=== PATIENT | female | born 1940 | race Caucasian/White ===

== ENCOUNTER 2019-05-31 11:02 | Observation (INO) | payer MEDICARE, OTHER ==
--- NOTE | 2019-05-31 11:47 | RAD ---
FRONTAL RADIOGRAPH CHEST THREE VIEWS RIGHT RIBS: DATE: 05/31/2019. COMPARISON: None. HISTORY: Fall, lower right-sided rib pain. FINDINGS: There is a probable tiny apical pneumothorax on the right. There are right-sided posterior inferior rib fractures including the 9th, 10th, and 11th ribs. IMPRESSION: Multiple inferior right-sided rib fractures with a tiny associated apical pneumothorax on the right. Results called to Dr. Álvarez 11:38 a.m. 05/31/2019. CODE CR POS: OFF
[2019-05-31] MEDS ORDERED: Morphine 4 MG/ML VIAL ONE (11:57)
[2019-05-31] MEDS ORDERED: Ondansetron PF 4 MG/2 ML Vial ONE ×2 (11:58→12:38)
[2019-05-31 12:03] LABS: #Eosinphils 0.1 thou/uL (0.0-0.7); #Lymphocytes 1.1 thou/uL (1.20-3.40); #Monocytes 0.4 thou/uL (0.11-0.59); #Neutrophils 3.7 thou/uL (1.40-6.50); %Basophils 0.8 % (0.0-1.0); %Eosinophils 1.9 % (0.0-10.0); %Lymphocytes 20.2 % (21.0-51.0); %Monocytes 7.3 % (0.0-10.0); %Neutrophils 69.9 % (42.0-75.0); Mean Corpuscular HGB CONC 33.8 g/dL (32.0-36.0); Mean Corpuscular Hemoglobin 31.3 pg (27.0-31.0); Mean Corpuscular Volume 92.6 fL (78.0-98.0); Mean Platelet Volume 9.2 fL (7.4-10.4); Platelet Count 168 thou/uL (130-400); Red Blood Cell (RBC) Count 4.14 mill/uL (4.20-5.40); White Blood Cell (WBC) Count 5.3 thou/uL (4.8-10.8)
[2019-05-31 12:07] LABS: PTT 30.2 SEC (22.9-36.1); Prothrombin Time 13.2 SEC (12.0-14.7)
[2019-05-31 12:16] LABS: ALT (SGPT) 24 U/L (8-55); AST (SGOT) 24 U/L (5-34); Albumin 4.4 g/dL (3.4-4.8); Alkaline Phosphatase 36 U/L (40-150); Anion Gap 15 mmol/L (10-20); BUN (Urea Nitrogen) 11 mg/dL (9.8-20.1); Bilirubin, Total 0.8 mg/dL (0.2-1.2); Calc. Creatinine Clearance 0 mL/min (70-130); Calcium 9.2 mg/dL (7.8-10.44); Carbon Dioxide 24 mmol/L (23-31); Chloride 103 mmol/L (98-107); Estimated GFR-MDRD 67; Globulin 2.7 g/dL (2.4-3.5); Glucose 88 mg/dL (83-110); Potassium 4.1 mmol/L (3.5-5.1); Protein, Total 7.1 g/dL (6.0-8.3); Sodium 138 mmol/L (136-145)
--- NOTE | 2019-05-31 12:47 | CT ---
HEAD CT WITHOUT CONTRAST: DATE: 05/31/2019. COMPARISON: None. HISTORY: Fall, right-sided rib pain. TECHNIQUE: Axial CT imaging at 4.8 mm intervals from the vertex through the skull base without contrast. FINDINGS: The imaged paranasal sinuses and mastoid air cells are well aerated. There is no displaced calvarial fracture. There is no intracranial hemorrhage, midline shift, mass effect, or ventricular enlargement. IMPRESSION: No intracranial hemorrhage or displaced calvarial fracture. POS: OFF
--- NOTE | 2019-05-31 13:00 | CT ---
CERVICAL SPINE CT WITHOUT CONTRAST: DATE: 05/31/2019. COMPARISON: None. HISTORY: Fall, trauma, pain. TECHNIQUE: Axial CT imaging at 2 mm intervals through the cervical spine with coronal and sagittal reformatted i maging. FINDINGS: There is mild degenerative change at the atlantoaxial interspace. The craniocervical junction is int act. There is multilevel disk space narrowing and degenerative end plate change, most prominent at C3-4 an d C6-7 with mild associated posterior osteophyte formation at these levels. There is mild anterolist hesis at the C7-T1 level measuring approximately 4 mm. Multilevel bilateral cervical spine facet hypertrophy present. C1-2: The C1 ring appears intact. The occipital condyles, the dens, and the C1-2 articulation demonstrate no acute findings. There is a small pneumothorax in the right lung apex, as seen on recent chest radiograph. No displaced cervical spine fracture or evidence of cervical spine dislocation. IMPRESSION: Cervical spine degenerative change. No acute fracture of the cervical spine seen. There is an apica l pneumothorax on the right. POS: OFF
[2019-05-31] MEDS ORDERED: Iopamidol 370 76% 100 ML VIAL ONE (13:11)
--- NOTE | 2019-05-31 13:16 | CT ---
CT OF THE CHEST AND ABDOMEN AND PELVIS CT OF THE THORACIC SPINE CT OF THE LUMBAR SPINE: DATE: 05/31/2019. COMPARISON: None. HISTORY: Fall, trauma, pain. Right-sided rib fractures with associated small apical pneumothorax seen on rece nt radiographs. TECHNIQUE: Axial CT imaging at 5 mm intervals from the thoracic inlet through the pubic symphysis with IV contra st. Coronal and sagittal reformatted imaging of the chest, abdomen, pelvis, thoracic spine, and lumb ar spine obtained. FINDINGS: There is a breast implant on the left. No lymphadenopathy is noted within the axillary, hilar, or me diastinal regions. No significant pleural, pericardial, or mediastinal fluid is seen. The vascular structures of the chest appear unremarkable aside from atherosclerotic calcification in the region of the aortic arch and descending thoracic aorta. There is a small apical pneumothorax on the right. There is no pneumothorax on the left. No discrete endobronchial lesion is noted on either side. Review of the extraspinal osseous structures of the chest demonstrates multiple comminuted displaced rib fractures on the right involving the right 9th, 10th, and 11th ribs. There is no free intraperitoneal air or fluid seen. The liver, gallbladder, spleen, pancreas, and adrenal glands demonstrate no acute findings. There is a tiny hypodensity in the right lobe of the liver on image 61, too small to characterize. Tiny hypo densities are noted within the kidneys, too small to characterize, but likely representing cysts. Limited assessment of the bowel demonstrates no acute findings. Vascular structures of the abdomen/pelvis demonstrate scattered atherosclerotic calcification of the infrarenal abdominal aorta and its branches. No lymphadenopathy is evident within the abdomen or pel vis. The extraspinal osseous structures of the abdomen and pelvis demonstrate no acute findings. No displaced fracture or evidence of dislocation is seen involving the thoracic spine or the lumbar s pine. There is a mild degree of thoracic spine dextroscoliosis. There is multilevel lower lumbar sp ine facet hypertrophy and there is minimal anterolisthesis at the L4-5 level. There is subcutaneous gas within the right chest wall associated with the above-described rib fractur es. IMPRESSION: Comminuted and displaced 9th, 10th, and 11th rib fractures on the right with small volume associated subcutaneous emphysema and a small apical pneumothorax on the right. Additional incidental findings as above. POS: OFF
[2019-05-31] MEDS ORDERED: hydrALAZINE 20 MG/ML VIAL SLOW IVP PRN (13:47)
[2019-05-31] MEDS ORDERED: Dextrose 50% Abboject 50 ML SYRINGE SLOW IVP PRN (13:47)
[2019-05-31] MEDS ORDERED: Dextrose 5% in Water 1,000 ML IV PRN (13:47)
[2019-05-31] MEDS ORDERED: traMADol HCl 50 MG TAB PO PRN (13:55)
[2019-05-31 13:56] LABS: Magnesium 2.4 mg/dL (1.6-2.6); Phosphorus 2.9 mg/dL (2.3-4.7)
[2019-05-31] MEDS ORDERED: Cyclobenzaprine 10 MG TAB PO PRN (13:56)
[2019-05-31] MEDS ORDERED: Acetaminophen 500 MG TAB PO SCH ×2 (14:00→18:00)
[2019-05-31] MEDS ORDERED: traMADol HCl 50 MG TAB PO SCH (14:00)
[2019-05-31] MEDS ORDERED: D5 1/2 NS w/20 mEq KCL 1,000 ML IV SCH (14:45)
[2019-05-31] MEDS: Ondansetron ODT 4 MG TAB PO PRN (15:39)
[2019-05-31] MEDS: Ibuprofen 600 MG TAB PO SCH ×2 (15:46→21:39)
[2019-05-31] MEDS ORDERED: Ketorolac Tromethamine 30 MG/ML VIAL IVP SCH (17:00)
[2019-05-31] MEDS ORDERED: Scopolamine 1.5 mg/72 hour Patch TD SCH (17:00)
[2019-05-31] MEDS ORDERED: Acetaminophen 1,000 MG in Premix Bag 1 BAG IVPB SCH ×2 (17:00→18:00)
[2019-05-31] MEDS ORDERED: Promethazine HCl 25 MG/ML VIAL IM/IV SCH (17:00)
[2019-05-31] MEDS: Sodium Chloride 0.9% 1,000 ML IV SCH (17:23)
--- NOTE | 2019-05-31 17:26 | HP ---
REQUESTING PHYSICIAN: Dr. Álvarez, [facility]. HISTORY OF PRESENT ILLNESS: This is a 78-year-old lady who is visiting her family here in town. The patient lives in [place], [place]. The patient states that earlier today she was playing with the grandchildren and slipped on a rug in the grandchildren's room causing her to fall, hitting the bed frame, striking her right lateral ribs. The patient denies any dizziness, chest pain, or shortness of breath prior to falling. The patient reports immediate pain to the right rib area after falling. The patient does have obvious ecchymosis to the right mid lower back and right midaxillary area. The patient denies hitting her head or having any other injuries. Denies any loss of consciousness. The patient currently is complaining of nausea as she was given 4 mg of morphine at the other facility. The patient has been given 8 mg of Zofran IV with some relief of nausea. The patient states she has not had anything to eat today, which could contribute to her nausea. Trauma Services was asked to admit the patient for observation and pain management of a right small apical pneumothorax and multiple right-sided rib fractures. PAST MEDICAL HISTORY: Hypothyroidism, hyperlipidemia, high cholesterol, breast cancer 7 years ago, treated with chemo, physical therapy for frozen right shoulder, depression. PAST SURGICAL HISTORY: Denies. SOCIAL HISTORY: Lives with her spouse. Denies any smoking history. Denies illicit drug use. Denies any alcohol use. ALLERGIES: NO KNOWN DRUG ALLERGIES. MEDICATIONS: Synthroid, unknown dose. A pill for depression and a pill for high cholesterol. The patient's family is in the process of getting her medications. ALLERGIES: NO KNOWN DRUG ALLERGIES. REVIEW OF SYSTEMS: A 10-point review of systems is negative unless otherwise indicated in the above HPI. PHYSICAL EXAMINATION: VITAL SIGNS: Blood pressure 157/72, pulse 56, respirations 16, temperature 98.2, SpO2 96% on 2 L nasal cannula. GENERAL: A pleasant elderly female, moderate distress due to right-sided rib pain and nausea. HEENT: Mild ecchymosis to right side of face. No obvious deformity noted at the head or face. Pupils are equal bilateral. Nose exam is normal. No nasal deformity. No bleeding from nares. Teeth are normal. Normal range of motion of neck. Trachea is midline. No cervical spine or tenderness. RESPIRATORY: Tenderness to right lateral chest. No wheezing, rales, or rhonchi. Respirations shallow. No respiratory distress. CARDIOVASCULAR: Regular rate, regular rhythm. No murmur. Mildly bradycardic. ABDOMEN: Soft, nontender, nondistended. Active bowel sounds. EXTREMITIES: Moves all extremities. No pedal edema. Distal pulses intact. NEUROLOGIC: GCS 15. No focal deficits. Cranial nerves intact. LABORATORY DATA: WBC 5.3, RBC 4.14, hemoglobin 13.0, hematocrit 38.4, and platelets 168. Sodium 138, potassium 4.1, chloride 103, BUN 11, creatinine 0.82, estimated GFR 67, glucose 88, calcium 9.2, phosphorus 2.9, magnesium 2.4. Alkaline phosphate 36, AST 24, ALT 24. DIAGNOSTIC DATA: Chest x-ray with ribs, impression, multiple inferior right-sided rib fractures with a tiny associated apical pneumothorax on the right. Brain CT, no intracranial hemorrhage or fracture. Cervical spine CT, there are mild degenerative changes. No displaced cervical spine fracture or evidence of cervical spine dislocation. Chest, abdomen, and pelvis CT, the liver, gallbladder, spleen, pancreas, and adrenal glands demonstrate no acute findings. There is a tiny hypodensity in the right lobe of the liver, likely a renal cyst. There is subcutaneous gas within the right chest wall associated with the above rib fractures, comminuted and displaced ninth, tenth, and eleventh rib fractures on the right with small volume associated subcutaneous emphysema and a small apical pneumothorax on the right. PLAN: Admit patient to the surgical floor for observation and pain management. We will repeat a chest x-ray in the morning. We will place the patient on a rib fracture protocol and encourage pulmonary toilet. We will place the patient on a regular diet. The plan will be discussed with the attending after this dictation. The plan has been discussed with the patient and spouse who agree. Job ID: [id number]
[2019-05-31] MEDS: traMADol HCl 50 MG TAB PO SCH ×2 (17:30→23:25)
[2019-05-31] MEDS ORDERED: Ketorolac Tromethamine 15 MG/ML VIAL IVP SCH (18:00)
[2019-05-31 18:19] VITALS: BMI 24.9
[2019-05-31] MEDS ORDERED: Enoxaparin Sodium 30 MG/0.3 ML SYRINGE SC SCH (21:00)
[2019-05-31] MEDS: Gabapentin 100 MG CAP PO SCH (21:38)
[2019-05-31] MEDS: Senokot S 8.6-50 MG TAB PO SCH (21:38)
[2019-05-31] MEDS: Famotidine 20 MG TAB PO SCH (21:39)
[2019-05-31] MEDS: Acetaminophen 500 MG TAB PO SCH (23:26)
--- NOTE | 2019-05-31 23:38 | PRG ---
DATE OF SERVICE: 05/31/2019 SUBJECTIVE: I saw the patient earlier today. A 78-year-old woman status post ground level fall. I reviewed the History and Physical as dictated by Ms. Cardoso, trauma nurse practitioner. At the time of my evaluation, the patient is awake and alert. Her daughter was at bedside. The patient was complaining of right chest wall pain which made it difficult for her to cough or take a deep breath. She denied any abdominal pain, or dyspnea. I personally reviewed all radiographic images including an unremarkable brain and cervical spine CT scan. CT scan of the chest, abdomen, and pelvis reveals multiple right-sided rib fractures involving ribs 9, 10, and 11. There is some small right-sided subcutaneous emphysema as well as right apical pneumothorax. No intraabdominal pathology is noted. CT scan of the thoracic and lumbar spine revealed no fractures or dislocation. I have also reviewed laboratory studies including a CBC with hemoglobin and hematocrit of 13.0 and 38.4 respectively. PTT and INR normal at 30.2 seconds and 1.0 respectively. Metabolic profile includes sodium of 138, potassium 4.1, chloride is 103, bicarb 24, BUN and creatinine are 11 and 0.82 respectively. AST and ALT normal, so is total bilirubin normal at 0.8. IMPRESSION: 1. Status post ground level fall with right blunt chest trauma. 2. Small right apical pneumothorax. 3. Multiple right rib fractures involving ribs 9, 10, and 11. PLANS: Optimize pain control. I did prescribe a dose of Ofirmev and a dose of Toradol for the patient at the time when she was complaining of nausea, limiting oral intake. We would initiate rib fracture protocol and bronchodilator therapy. We will initiate physical and occupational therapy to increase activity accordingly. Above findings and plan discussed with the patient and her daughter at bedside. They both indicated understanding of information given. I answered their questions. Job ID: [id number]
--- NOTE | 2019-05-31 23:45 | PRG ---
DATE OF SERVICE: 05/31/2019 The patient was seen today during evening rounds. She was resting comfortably in bed and asleep. She had no signs of acute respiratory distress and was breathing comfortably. She is status post mechanical fall after a slip and landing on the bed frame. She has a right small apical pneumothorax and right displaced rib fractures 9, 10 and 11. Since admission to the hospital, she has been afebrile, hemodynamically stable, and saturating between 94% and 99% on 2 L nasal cannula. We will continue her current pain control and diet. Continue pulmonary toileting with incentive spirometry q.1 hour while awake. Chest x-ray is pending for the morning. PT/OT to work with the patient tomorrow. Once pain is controlled and if the pneumothorax is stable, the patient will likely be able to be discharged at that time. Job ID: [id number]
[2019-06-01] MEDS: Sodium Chloride 0.9% 1,000 ML IV SCH (03:09)
[2019-06-01] MEDS: Ibuprofen 600 MG TAB PO SCH ×2 (06:16→13:14)
[2019-06-01] MEDS: Acetaminophen 500 MG TAB PO SCH ×2 (06:16→11:31)
[2019-06-01] MEDS: traMADol HCl 50 MG TAB PO SCH ×2 (06:17→11:32)
[2019-06-01] MEDS: Senokot S 8.6-50 MG TAB PO SCH (08:49)
[2019-06-01] MEDS: Famotidine 20 MG TAB PO SCH (08:50)
[2019-06-01] MEDS: Gabapentin 100 MG CAP PO SCH (08:50)
[2019-06-01] MEDS: Ondansetron ODT 4 MG TAB PO PRN (08:53)
[2019-06-01] MEDS ORDERED: Polyethylene Glycol 3350 17 GM Packet PO SCH (09:00)
[2019-06-01] MEDS ORDERED: Citalopram 20 MG TAB PO SCH (09:00)
[2019-06-01] MEDS ORDERED: Levothyroxine Sodium 88 MCG TAB PO SCH (09:15)
--- NOTE | 2019-06-01 10:18 | RAD ---
PORTABLE CHEST: HISTORY: Right-sided pneumothorax. COMPARISON: 05/31/2019 FINDINGS: There is a tiny right apical pneumothorax seen. Heart size appears slightly enlarged. There are ath erosclerotic changes of the aorta. The lungs are clear of infiltrates. There are arthritic changes of the spine. IMPRESSION: Tiny right apical pneumothorax. POS: OFF
[2019-06-01 15:36] VITALS: BP 115/62; TEMP 98.2
[2019-06-01] MEDS ORDERED: Atorvastatin Calcium 40 MG TAB PO SCH (21:00)
[2019-06-01] MEDS ORDERED: Atorvastatin Calcium 20 MG TAB PO SCH (21:00)
--- NOTE | 2019-06-02 03:17 | DIS ---
DATE OF ADMISSION: 05/31/2019 DATE OF DISCHARGE: 06/01/2019 RESIDENT: Marisel Diaz MD. ATTENDING: Dr. Avila CONSULTS: None. PROCEDURES: None. PRIMARY DIAGNOSIS: Fracture of ribs 9, 10 and 11, comminuted and displaced. SECONDARY DIAGNOSES: 1. Status post mechanical fall after slip and hitting hard object. 2. Small apical right pneumothorax. 3. History of hypothyroidism, hyperlipidemia, and depression. DISCHARGE MEDICATIONS: 1. Cyclobenzaprine 5 mg p.o. t.i.d. p.r.n., 21 tabs for 7 days. 2. Gabapentin 100 mg p.o. b.i.d. seven days, 14 tablets. 3. Tramadol 50 mg p.o. q6h p.r.n., 30 tablets. 4. Ibuprofen 800 mg q.8 hours p.r.n. 5. Tylenol 1000 mg q.6 hours p.r.n. DISCONTINUED MEDICATIONS: None. HISTORY OF PRESENT ILLNESS AND HOSPITAL COURSE: This patient is a 78-year-old woman who was visiting family and is from [place], [place]. She was playing with her grandchildren and slipped on a rug and fell hitting her right side on the bed frame. She experienced immediate pain. Denied loss of consciousness. She did experience nausea, which resolved with morphine and Zofran. During her hospital stay, the patient was intermittently requiring 2 L nasal cannula because she was desaturating into the low 90s. However, after some encouragement to cough with a pillow, walk the halls, and use her incentive spirometry, she no longer needed the nasal cannula. The patient felt stable and well enough to return home, and her pain was well controlled on oral pain medications. She was tolerating p.o. on the day of discharge. Of note, the patient did have the following imaging on presentation. Brain CT showed no intracranial hemorrhage. The cervical spine CT showed mild degenerative changes with no displaced cervical spine fracture or evidence of cervical spine dislocation. The CT of the chest, abdomen, and pelvis showed her internal organs to be intact. This also showed the comminuted and displaced 9th, 10th, and 11th rib fractures along with subcutaneous emphysema and a small apical right pneumothorax. Chest x-ray also showed the rib fractures and the right apical pneumothorax. Repeat chest x-ray on the day after discharge showed a stable right apical pneumothorax. PHYSICAL EXAMINATION: VITAL SIGNS: On the day of discharge, temp 98.2, pulse 64, respirations 18, O2 saturation 96% on room air, blood pressure 115/62. GENERAL: Well appearing and in good spirits. CARDIAC: Appears well perfused. RESPIRATORY: Nonlabored breathing, appears in no acute respiratory distress. Demonstrated coughing with her pillow and taking deep breaths with incentive spirometry. ABDOMEN: Nondistended. EXTREMITIES: No cyanosis or edema. Appear well perfused. LABORATORY DATA: No new labs were drawn on the day of discharge. DISPOSITION: Stable. DISCHARGE INSTRUCTIONS: 1. Location: Home. 2. Diet: Regular. 3. Activity: As tolerated. 4. Followup: The patient will need a repeat chest x-ray in 2 weeks to assess the pneumothorax. She may do this in her hometown and also follow up with a primary care provider. If however she is in this area, she may call Dr. Avila with any concerns. Job ID: [id number] MTDD
[2019-06-02] MEDS ORDERED: Levothyroxine Sodium 88 MCG TAB PO SCH (06:00)
== END 2019-06-01 15:23 | disposition home or self-care (01) ==
LOC: SCSER 11:02 → SURG A 12:36
PROVIDERS: ADMIT Surgery; ATTEND Surgery
DX: S22.41XA Multiple fractures of ribs, right side, initial encounter for closed fracture (principal); S27.0XXA Traumatic pneumothorax, initial encounter; T79.7XXA Traumatic subcutaneous emphysema, initial encounter; E03.9 Hypothyroidism, unspecified; E78.5 Hyperlipidemia, unspecified; F32.9 Major depressive disorder, single episode, unspecified; E78.00 Pure hypercholesterolemia, unspecified; Z79.899 Other long term (current) drug therapy; W01.190A Fall on same level from slipping, tripping and stumbling with subsequent striking against furniture, initial encounter
CPT/HCPCS: 70450; 71045; 71101; 71260; 72125; 74177; 80053; 83735; 84100; 85025; 85610; 85730; 94640 ×2; 96361 ×2; 96372; 96374; 96375 ×2; 96376; 97116 ×2; 97139 ×3; 97530; 99285; G0378 ×2; J0131; J1650; J1885; J2270; J2405; J2550; J7620; Q0162; Q9967